=== PATIENT | female | born 1935 | race African-American/Black ===

== ENCOUNTER 2023-04-11 22:21 | Emergency (ER) | payer OTHER ==
[~2023-04-11] VITALS: Ht 165.1 cm; Wt 41.0 kg
[2023-04-11] MEDS ORDERED: ACETAMINOPHEN 325MG TABLET PO ONE (23:15)
[2023-04-12 01:08] LABS: BASOPHILS % 0.3 % (0.0-2.0); EOSINOPHILS % 0.1 % (0.0-5.0); HEMATOCRIT. 47.8 % (36.0-48.0); HEMOGLOBIN. 15.4 g/dL (12.0-16.0); LYMPHOCYTES % 12.7 % (20.0-50.0); MEAN CORPUSCULAR HEMOGLOBIN 31.3 pg (28.0-32.0); MEAN CORPUSCULAR VOLUME 97.4 fL (81.0-99.0); MEAN PLATELET VOLUME 9.5 fl (7.4-10.4); MONOCYTES % 4.1 % (2.0-8.0); NEUTROPHILS % 82.8 % (40.0-76.0); PLATELET 175 x1000/uL (130-400); RED CELL DISTRIBUTION WIDTH 14.5 % (11.6-14.6)
[2023-04-12 01:15] LABS: CHLORIDE 109 mEq/L (98-107)
[2023-04-12] MEDS ORDERED: ASPIRIN 325MG TABLET PO ONE (01:45)
[2023-04-12 02:08] LABS: INR 1.1; PROTHROMBIN TIME 12.1 sec (9.6-11.0)
[2023-04-12 08:54] VITALS: BP 131/61
== END 2023-04-12 09:06 | disposition short-term general hospital (02) ==
LOC: ER 22:21
DX: R55 Syncope and collapse (principal); N18.6 End stage renal disease; M79.10 Myalgia, unspecified site; I12.0 Hypertensive chronic kidney disease with stage 5 chronic kidney disease or end stage renal disease; Z20.822 Contact with and (suspected) exposure to COVID-19
CPT/HCPCS: 36415; 70450; 71045; 73030; 80053; 83880; 84484; 85025; 85610; 87426; 93005; 99285; C1893; C9803